=== PATIENT | male | born 1990 | race Caucasian/White ===

== ENCOUNTER 2019-10-04 20:47 | Emergency (ER) | payer OTHER ==
[~2019-10-04] VITALS: Ht 177.8 cm; Wt 72.6 kg
[2019-10-04 21:25] LABS: BASOPHILS 0.8 % (0.0-2.0); EOSINOPHILS 6.4 % (0.0-3.0); HEMATOCRIT 43.9 % (42.0-52.0); HEMOGLOBIN 15.2 gm/dL (14.0-18.0); LYMPHOCYTES 30.7 % (24.0-44.0); MCH 30.5 pg (26.0-34.0); MCHC 34.6 g/dL (28.0-37.0); MCV 88.3 fL (80.0-100.0); MONOCYTES 5.8 % (1.0-8.0); PLATELET COUNT 287 thou/uL (150-400); POLYS 56.3 % (36.0-66.0); RBC 4.97 mil/uL (4.50-6.00); RDW 12.7 % (10.5-14.5); WBC 8.9 thou/uL (4.0-11.0)
[2019-10-04 21:40] LABS: CALCIUM 8.7 mg/dL (8.5-10.1)
[2019-10-04 21:46] LABS: TOTAL BILIRUBIN 0.5 mg/dL (0.2-1.0); TOTAL PROTEIN 7.5 g/dL (6.4-8.2)
[2019-10-04 23:44] LABS: URINE BILIRUBIN NEGATIVE (Negative); URINE BLOOD NEGATIVE (Negative); URINE CLARITY CLEAR; URINE COLOR YELLOW; URINE GLUCOSE-RANDOM* NEGATIVE (Negative); URINE KETONES NEGATIVE (Negative); URINE LEUKOCYTES-REFLEX NEGATIVE (Negative); URINE NITRITE-REFLEX NEGATIVE (Negative); URINE PROTEIN (DIPSTICK) NEGATIVE (Negative); URINE SPECIFIC GRAVITY >= 1.030 (1.005-1.035); URINE UROBILINOGEN 0.2 E.U./dl (0.2-1.0)
[2019-10-04 23:52] LABS: AMP/METHAMP Negative (Negative); BARBITURATES Negative (Negative); BENZODIAZEPINES Negative (Negative); COCAINE Negative (Negative); METHADONE Negative (Negative); OPIATES Negative (Negative); PCP Negative (Negative)
[2019-10-05 01:22] VITALS: BP 90/50
== END 2019-10-05 01:15 | disposition home or self-care (01) ==
LOC: ER 20:47
PROVIDERS: Physician Assistant
DX: R56.9 Unspecified convulsions (principal); F41.0 Panic disorder [episodic paroxysmal anxiety]; R10.9 Unspecified abdominal pain

== ENCOUNTER → 2019-10-22 | Outpatient (CLI) | payer OTHER | LOC: RAD 11:33 | PROVIDERS: ATTEND Nurse Practitioner | DX: M25.512 Pain in left shoulder (principal); M25.552 Pain in left hip ==

== ENCOUNTER → 2019-11-14 | Outpatient (CLI) | payer OTHER ==
--- NOTE | ~2019-11-14 | EEG ---
[facility] Ramonita [email or web address] [address] ELECTROENCEPHALOGRAM Name: REJI DELEON Room #: REG [facility]..#: [id number] Admission: 11/14/19 Attend Phys: ANGLE Salinas Discharge: Date of : 89 Report #: [id number] THIS REPORT FOR: //name// CC: Raisa Fletcher DATE OF SERVICE: 11/14/2019 This patient is being evaluated for seizure. EEG was done by placing the electrode by standard 10-20 system of electrode placement. Both referential and sequential montages were used for recording. Background activity in this patient's EEG is about 11 Hz and 50 microvolts. There is a symmetrical activity. The patient became drowsy and then went to sleep that is associated with bilaterally symmetrical sleep spindle and vertex sharp waves. Throughout the record, no active epileptiform activity was noticed. IMPRESSION: This patient's EEG is within normal limits. Thank you very much for this referral. By: [id number] Ang Dunbar MD /nt
== END ==
LOC: NEURO 09:39
PROVIDERS: ATTEND Nurse Practitioner
DX: R56.9 Unspecified convulsions (principal)

== ENCOUNTER → 2020-01-08 | Outpatient (CLI) | payer OTHER | LOC: MRI 10:52 | PROVIDERS: ATTEND Psychiatry & Neurology Neuromuscular Medicine | DX: R56.9 Unspecified convulsions (principal); F10.11 Alcohol abuse, in remission ==

== ENCOUNTER → 2020-03-25 | Outpatient (CLI) | payer OTHER | LOC: ULTRA 14:15 | PROVIDERS: ATTEND Psychiatry & Neurology Neuromuscular Medicine | DX: F41.9 Anxiety disorder, unspecified (principal); R47.01 Aphasia ==